=== PATIENT | male | born 1990 | race Two or more races ===

== ENCOUNTER 2016-10-17 07:16 | Emergency (ER) | payer MEDICAID ==
[~2016-10-17] VITALS: Ht 170.2 cm; Wt 95.7 kg
[2016-10-17 08:15] LABS: Basophils # (auto) 0 uL; Basophils % (auto) 0.4 % (0.0-2.0); Eosinophils # (auto) 0 uL; Eosinophils % (auto) 0.1 % (0.0-7.0); Hematocrit 49.4 % (41.0-53.0); Hemoglobin 15.9 g/dL (13.5-17.5); Lymphocytes % (auto) 12.2 % (10.0-50.0); Mean Corpuscular Hgb Conc. 32.2 g/dL (32.0-36.0); Mean Platelet Volume 7.7 fL (7.4-10.4); Monocytes # (auto) 0.8 uL; Monocytes % (auto) 9.1 % (0.0-12.0); Neutrophils # (auto) 6.6 uL; Neutrophils % (auto) 78.2 % (37.0-80.0); Platelet Count (auto) 335 10^3/uL (140-450); Red Cell Distribution Width 13.7 % (11.6-16.0); White Blood Cell 8.4 10^3/uL (4.4-10.8)
[2016-10-17 08:35] LABS: Albumin 4.7 g/dL (3.4-5.0); BUN/Creatinine Ratio 6.3; Bilirubin, Total 0.9 mg/dL (0.2-1.0); Calcium 9.7 mg/dL (8.5-10.1); Potassium 3.4 mmol/L (3.5-5.1); Total Protein 8.1 g/dL (6.4-8.2)
[2016-10-17] MEDS ORDERED: ALBUAER3 IN (08:45)
[2016-10-17] MEDS ORDERED: POTASSIUM CHL 10% (20 MEQ/15ML) ORAL SOLN PO ONE (10:45)
[2016-10-17 11:24] LABS: Urine Bilirubin Negative (Negative); Urine Blood Negative /uL (Negative); Urine Color Yellow (Yellow); Urine Glucose Normal (Normal); Urine Nitrite Negative (Negative); Urine RBC <1 /hpf (0 - 3); Urine Squamous Epithelial Cell FEW /hpf (<5); Urine Urobilinogen Normal (Negative)
[2016-10-17 11:32] LABS: Urine Ketone 3+ (Negative)
[2016-10-17 11:43] VITALS: BP 133/80
== END 2016-10-17 12:57 | disposition home or self-care (01) ==
LOC: ER 07:28
DX: R10.32 Left lower quadrant pain (principal); E87.6 Hypokalemia; J45.909 Unspecified asthma, uncomplicated; I10 Essential (primary) hypertension; F15.10 Other stimulant abuse, uncomplicated; F12.10 Cannabis abuse, uncomplicated; K76.0 Fatty (change of) liver, not elsewhere classified
CPT/HCPCS: 36415; 74176; 80053; 81001; 85025; 99285; G0434

== ENCOUNTER 2017-07-09 19:12 | Emergency (ER) | payer MEDICAID ==
[~2017-07-09] VITALS: Ht 172.7 cm; Wt 86.2 kg
[~2017-07-09 19:12] MED LIST: ALBUAER3 IN
[2017-07-09 20:29] LABS: Urine Bilirubin Negative (Negative); Urine Blood 1+ /uL (Negative); Urine Color Yellow (Yellow); Urine Glucose Normal (Normal); Urine Ketone 1+ (Negative); Urine Nitrite Negative (Negative); Urine RBC <1 /hpf (0 - 3); Urine Urobilinogen Normal (Negative)
[2017-07-09] MEDS ORDERED: SODIUM CHLORIDE 0.9% 1,000 ML IV ONE (20:45)
[2017-07-09] MEDS ORDERED: MVI in SODIUM CHLORIDE 0.9% 1,010 ML ONE (20:54)
[2017-07-09] MEDS ORDERED: THIAMINE HCL 100 MG/ML 2ML VIAL ONE (20:59)
[2017-07-09 21:00] LABS: Basophils # (auto) 0 uL; Basophils % (auto) 0.4 % (0.0-2.0); Eosinophils # (auto) 0 uL; Eosinophils % (auto) 0.1 % (0.0-7.0); Hematocrit 44.7 % (41.0-53.0); Hemoglobin 15.5 g/dL (13.5-17.5); Lymphocytes % (auto) 9.4 % (10.0-50.0); Mean Corpuscular Hemoglobin 30.8 pg (28.0-32.0); Mean Corpuscular Hgb Conc. 34.6 g/dL (32.0-36.0); Mean Corpuscular Volume 89.2 fL (80.0-100.0); Mean Platelet Volume 7.1 fL (6.9-10.8); Monocytes # (auto) 0.6 uL; Monocytes % (auto) 5.5 % (0.0-12.0); Neutrophils # (auto) 8.6 uL; Neutrophils % (auto) 84.6 % (37.0-80.0); Nucleated Red Blood Cells % 0.1 %; Platelet Count (auto) 252 10^3/uL (140-450); White Blood Cell 10.2 10^3/uL (4.4-10.8)
[2017-07-09 21:07] LABS: Albumin 3.9 g/dL (3.4-5.0); BUN/Creatinine Ratio 7.1; Bilirubin, Total 0.2 mg/dL (0.2-1.0); Calcium 7.7 mg/dL (8.5-10.1); Potassium 3.5 mmol/L (3.5-5.1)
[2017-07-09] MEDS ORDERED: ACETAMINOPHEN 325 MG TAB PO ONE (23:15)
[2017-07-10 02:38] VITALS: BP 131/79
[2017-07-10] MEDS ORDERED: THIAMINE INJ 100 MG, MULTIPLE VITAMIN 10 ML, FOLIC ACID 1 MG, MAGNESIUM SULF SDV 50% 8 ... IV SCH ×5 (12:00)
== END 2017-07-10 02:48 | disposition home or self-care (01) ==
LOC: EDBD 19:12 → ER 19:12
DX: J45.909 Unspecified asthma, uncomplicated (principal); G92 Toxic encephalopathy; F10.129 Alcohol abuse with intoxication, unspecified; F41.9 Anxiety disorder, unspecified
CPT/HCPCS: 36415; 70450; 71010; 80053; 80307; 80320; 81001; 85025; 93005; 94761; 96365; 96366; 99285; J3411; J3475; J7030